=== PATIENT | male | born 1935 | race Caucasian/White ===

== ENCOUNTER 2016-09-06 09:18 | Day surgery (SDC) | payer MEDICARE, OTHER ==
[~2016-09-06] VITALS: Ht 182.9 cm; Wt 82.0 kg
[~2016-09-06 09:18] MED LIST: COLE625T2 PO; NIAC500T9 PO; VERA120T5 PO; VERA180T56 PO; VIT1TABL46 PO; vit D PO
[2016-09-06 09:56] VITALS: BP 146/65
[2016-09-06] MEDS ORDERED: SODIUM CHLORIDE 0.9% 1,000 ML IV SCH (10:15)
[2016-09-06] MEDS ORDERED: LEVO100T5 PO (10:19)
[2016-09-06 10:22] LABS: HEMOGLOBIN 12.3 g/dL (13.7-18.0)
[2016-09-06] MEDS ORDERED: LIDOCAINE 2%, 20ML ONE (10:23)
[2016-09-06 10:32] LABS: BLOOD UREA NITROGEN 21 mg/dL (7-18)
[2016-09-06] MEDS ORDERED: PROTAMINE SULFATE 10 MG/ML, 25ML ONE (10:40)
[2016-09-06] MEDS ORDERED: FENTANYL PF 100 MCG/2ML ONE (10:40)
[2016-09-06] MEDS ORDERED: FLUMAZENIL 0.1 MG/1 ML, 5ML ONE (10:40)
[2016-09-06] MEDS ORDERED: NITROGLYCERIN 5 MG/ML, 10ML ONE (10:40)
[2016-09-06] MEDS ORDERED: MIDAZOLAM 1 MG/ML, 5ML ONE (10:40)
[2016-09-06] MEDS ORDERED: NALOXONE 1 MG/ML, 2ML ONE (10:40)
[2016-09-06] MEDS ORDERED: HEPARIN 1,000 UNITS/ML, 10ML ONE (10:40)
== END 2016-09-06 14:00 | disposition home or self-care (01) ==
LOC: OUT 09:18
PROVIDERS: ATTEND Surgery Vascular Surgery
DX: T82.858A Stenosis of other vascular prosthetic devices, implants and grafts, initial encounter (principal); I13.11 Hypertensive heart and chronic kidney disease without heart failure, with stage 5 chronic kidney disease, or end stage renal disease; N18.6 End stage renal disease; Z99.2 Dependence on renal dialysis; E78.5 Hyperlipidemia, unspecified; Z87.891 Personal history of nicotine dependence; Z72.89 Other problems related to lifestyle; Y83.2 Surgical operation with anastomosis, bypass or graft as the cause of abnormal reaction of the patient, or of later complication, without mention of misadventure at the time of the procedure
CPT/HCPCS: 36415; 36902; 80048; 85025; C1725; C1769; C1894; J2250; J2720; J3010; J3490; J7030; 99156; 99157; J1644; J2310

== ENCOUNTER → 2017-07-27 | Outpatient (CLI) | payer MEDICARE, OTHER ==
[~2017-07-27] MED LIST changes: +COLE625T12 PO; -COLE625T2 PO; +LEVO100T5 PO
== END ==
LOC: CFH 12:53
PROVIDERS: ATTEND Internal Medicine Cardiovascular Disease
DX: I08.2 Rheumatic disorders of both aortic and tricuspid valves (principal); I10 Essential (primary) hypertension
CPT/HCPCS: 93306

== ENCOUNTER 2019-01-01 10:34 | Outpatient (CLI) | payer MEDICARE, OTHER | END 2019-01-01 23:59 | disposition home or self-care (01) | LOC: CFH 10:34 | PROVIDERS: ATTEND Internal Medicine Cardiovascular Disease | DX: I08.8 Other rheumatic multiple valve diseases (principal); E78.5 Hyperlipidemia, unspecified | CPT/HCPCS: 93306 ==

== ENCOUNTER 2019-01-22 10:03 | Day surgery (SDC) | payer MEDICARE, OTHER ==
[~2019-01-22] VITALS: Ht 185.4 cm; Wt 77.3 kg
[2019-01-22 11:21] VITALS: BP 154/74
== END 2019-01-22 14:55 | disposition home or self-care (01) ==
LOC: CACL 10:03
PROVIDERS: ATTEND Internal Medicine Cardiovascular Disease
DX: I25.10 Atherosclerotic heart disease of native coronary artery without angina pectoris (principal); I25.83 Coronary atherosclerosis due to lipid rich plaque; I35.0 Nonrheumatic aortic (valve) stenosis; I12.0 Hypertensive chronic kidney disease with stage 5 chronic kidney disease or end stage renal disease; N18.5 Chronic kidney disease, stage 5; E78.49 Other hyperlipidemia; Z99.2 Dependence on renal dialysis; Z79.890 Hormone replacement therapy; Z79.899 Other long term (current) drug therapy
CPT/HCPCS: 93458; 99156; C1769; C1894; J1644; J2250; J3010; Q9967; J0583

== ENCOUNTER → 2019-10-29 | Outpatient (CLI) | payer MEDICARE, OTHER ==
[~2019-10-29] MED LIST changes: +SEVE400T3 PO; +VERA120T13 PO; -VERA120T5 PO; -VERA180T56 PO; +VERA180T6 PO
== END | disposition home or self-care (01) ==
LOC: CFH 14:39
PROVIDERS: ATTEND Internal Medicine Cardiovascular Disease
DX: I08.2 Rheumatic disorders of both aortic and tricuspid valves (principal); I10 Essential (primary) hypertension
CPT/HCPCS: 93306

== ENCOUNTER → 2020-01-30 | Outpatient (CLI) | payer MEDICARE, OTHER | END | disposition home or self-care (01) | LOC: CVU 10:55 | PROVIDERS: ATTEND Internal Medicine Cardiovascular Disease | DX: I08.3 Combined rheumatic disorders of mitral, aortic and tricuspid valves (principal) | CPT/HCPCS: 93306; 93356 ==

== ENCOUNTER 2020-03-05 09:59 | Inpatient (IN) | payer MEDICARE, OTHER ==
[~2020-03-05] VITALS: Ht 185.4 cm; Wt 72.5 kg
[2020-03-05 11:15] VITALS: BP 169/79
[2020-03-05 11:20] LABS: BASOPHILS # (AUTO) 0.03 x10^3/uL (0-0.1); BASOPHILS % (AUTO) 1 % (0-1); EOSINOPHILS # (AUTO) 0.06 x10^3/uL (0-0.4); EOSINOPHILS % (AUTO) 1 % (1-7); LYMPHOCYTES # (AUTO) 0.87 x10^3/uL (1-3.4); LYMPHOCYTES % (AUTO) 14 % (22-44); MD NO; MEAN CORPUSCULAR HGB CONC 31.5 g/dL (33.2-36.2); MEAN PLATELET VOLUME 7.7 fL (7.4-10.4); MONOCYTES # (AUTO) 0.57 x10^3/uL (0.2-0.8); MONOCYTES % (AUTO) 9 % (2-9); NEUTROPHILS % (AUTO) 76 % (42-75); PLATELET COUNT 161 x10^3/uL (130-400); RED BLOOD COUNT 3.27 x10^6/uL (4.38-5.82); RED CELL DISTRIBUTION WIDTH 14.4 % (9.4-14.8)
[2020-03-05 11:30] LABS: ANION GAP 7 mmol/L (5-15); CHLORIDE 102 mmol/L (98-107); CREATININE 4.11 mg/dL (0.7-1.3)
[2020-03-05] MEDS ORDERED: TAMS-11 PO (11:30)
[2020-03-05] MEDS ORDERED: MIDAZOLAM 1 MG/ML, 5ML ONE (13:14)
[2020-03-05] MEDS ORDERED: FENTANYL PF 100 MCG/2ML ONE (13:14)
[2020-03-05] MEDS ORDERED: BIVALIRUDIN 250 MG ONE (13:15)
[2020-03-05] MEDS ORDERED: HEPARIN 1,000 UNITS/ML, 10ML ONE (13:15)
[2020-03-05] MEDS ORDERED: VERAPAMIL 2.5 MG/ML, 2ML ONE (13:15)
[2020-03-05] MEDS ORDERED: LIDOCAINE-MPF 1%, 5ML ONE (13:15)
[2020-03-05] MEDS ORDERED: LIDOCAINE 2%, 20ML ONE (13:29)
[2020-03-05] MEDS ORDERED: ACETAMINOPHEN 325 MG TABLET ONE (18:00)
[2020-03-05] MEDS: ACETAMINOPHEN 325 MG TABLET PO PRN (18:10)
[2020-03-05 19:26] VITALS: BP 136/62
[2020-03-06] MEDS: ACETAMINOPHEN 325 MG TABLET PO PRN (00:32)
[2020-03-06 01:04] VITALS: BP 154/72
[2020-03-06] MEDS ORDERED: OXYcodone IR 5MG TABLET PO PRN (01:30)
[2020-03-06 05:32] LABS: ANION GAP 13 mmol/L (5-15); CALCIUM 8.8 mg/dL (8.5-10.1); CHLORIDE 98 mmol/L (98-107); CREATININE 5.16 mg/dL (0.7-1.3)
[2020-03-06] MEDS: LEVOTHYROXINE 100 MCG TABLET PO SCH (05:47)
[2020-03-06 07:49] VITALS: BP 152/57
[2020-03-06] MEDS: VERAPAMIL 120MG TABLET PO SCH (09:01)
[2020-03-06] MEDS: COLESEVELAM 625 MG TABLET PO SCH (09:01)
[2020-03-06] MEDS: TAMSULOSIN 0.4 MG CAP.ER.24H PO SCH (09:01)
[2020-03-06 13:45] VITALS: BP 165/55
[2020-03-06] MEDS ORDERED: ONDANSETRON 2MG/ML, 2ML IVPush PRN (14:00)
[2020-03-06] MEDS ORDERED: ONDANSETRON 2MG/ML, 2ML ONE (14:32)
[2020-03-06 19:36] VITALS: BP 138/48
[2020-03-07 00:51] VITALS: BP 118/46
[2020-03-07] MEDS: LEVOTHYROXINE 100 MCG TABLET PO SCH (05:32)
[2020-03-07 06:02] LABS: BASOPHILS # (AUTO) 0.02 x10^3/uL (0-0.1); BASOPHILS % (AUTO) 0 % (0-1); EOSINOPHILS # (AUTO) 0.06 x10^3/uL (0-0.4); EOSINOPHILS % (AUTO) 1 % (1-7); LYMPHOCYTES # (AUTO) 1.24 x10^3/uL (1-3.4); LYMPHOCYTES % (AUTO) 19 % (22-44); MD NO; MEAN CORPUSCULAR HEMOGLOBIN 33.8 pg (27.5-34.5); MEAN CORPUSCULAR HGB CONC 32.9 g/dL (33.2-36.2); MEAN PLATELET VOLUME 8.4 fL (7.4-10.4); MONOCYTES # (AUTO) 0.74 x10^3/uL (0.2-0.8); MONOCYTES % (AUTO) 11 % (2-9); NEUTROPHILS # (AUTO) 4.39 x10^3/uL (1.8-6.8); NEUTROPHILS % (AUTO) 68 % (42-75); PLATELET COUNT 122 x10^3/uL (130-400); RED CELL DISTRIBUTION WIDTH 14.3 % (9.4-14.8)
[2020-03-07 07:45] VITALS: BP 113/42
[2020-03-07] MEDS: VERAPAMIL 120MG TABLET PO SCH (09:00)
[2020-03-07 09:42] VITALS: BP 105/39
[2020-03-07] MEDS: TAMSULOSIN 0.4 MG CAP.ER.24H PO SCH (09:54)
[2020-03-07] MEDS: COLESEVELAM 625 MG TABLET PO SCH (09:57)
[2020-03-07 12:48] VITALS: BP 147/48
[2020-03-07 19:49] VITALS: BP 109/43
[2020-03-08 00:05] VITALS: BP 134/55
[2020-03-08] MEDS: LEVOTHYROXINE 100 MCG TABLET PO SCH (05:07)
[2020-03-08 06:10] VITALS: BP 133/53
[2020-03-08 07:30] VITALS: BP 122/52
[2020-03-08 07:56] LABS: MEAN CORPUSCULAR HGB CONC 32.7 g/dL (33.2-36.2); MEAN PLATELET VOLUME 7.9 fL (7.4-10.4); PLATELET COUNT 133 x10^3/uL (130-400); RED BLOOD COUNT 2.16 x10^6/uL (4.38-5.82); RED CELL DISTRIBUTION WIDTH 14.1 % (9.4-14.8)
[2020-03-08 08:12] LABS: BASOPHILS # (AUTO) 0.02 x10^3/uL (0-0.1); BASOPHILS % (AUTO) 0 % (0-1); EOSINOPHILS % (AUTO) 2 % (1-7); LYMPHOCYTES # (AUTO) 1.05 x10^3/uL (1-3.4); LYMPHOCYTES % (AUTO) 18 % (22-44); MD SCAN; MONOCYTES # (AUTO) 0.63 x10^3/uL (0.2-0.8); MONOCYTES % (AUTO) 11 % (2-9); NEUTROPHILS # (AUTO) 4.11 x10^3/uL (1.8-6.8); NEUTROPHILS % (AUTO) 70 % (42-75)
[2020-03-08] MEDS: VERAPAMIL 120MG TABLET PO SCH (09:00)
[2020-03-08 10:22] VITALS: BP_SYST 118; BP_SYST 84; BP_SYST 96; BP_DIAS 33; BP_DIAS 45; BP_DIAS 52
[2020-03-08] MEDS: TAMSULOSIN 0.4 MG CAP.ER.24H PO SCH (11:28)
[2020-03-08] MEDS: COLESEVELAM 625 MG TABLET PO SCH (11:28)
[2020-03-08 14:11] VITALS: BP 144/55
[2020-03-08 19:03] VITALS: BP 136/63
[2020-03-09] VITALS (10 sets, daily range): BP systolic 119–152; BP diastolic 54–64
[2020-03-09] MEDS: LEVOTHYROXINE 100 MCG TABLET PO SCH (06:20)
[2020-03-09] MEDS: VERAPAMIL 120MG TABLET PO SCH (08:44)
[2020-03-09] MEDS: COLESEVELAM 625 MG TABLET PO SCH (08:52)
[2020-03-09] MEDS: TAMSULOSIN 0.4 MG CAP.ER.24H PO SCH (08:53)
[2020-03-10 00:28] VITALS: BP 133/57
[2020-03-10] MEDS: LEVOTHYROXINE 100 MCG TABLET PO SCH (05:24)
[2020-03-10 06:55] VITALS: BP 157/66
[2020-03-10] MEDS: TAMSULOSIN 0.4 MG CAP.ER.24H PO SCH (09:43)
[2020-03-10] MEDS: VERAPAMIL 120MG TABLET PO SCH (09:44)
[2020-03-10] MEDS: COLESEVELAM 625 MG TABLET PO SCH (09:44)
[2020-03-10 12:08] VITALS: BP 119/57
== END 2020-03-10 15:45 | disposition home or self-care (01) | DRG 919 ==
LOC: CACL 09:59 → ORIP 14:08 → 5SO 14:57 → DCLOUNGE 03-10 15:38
PROVIDERS: ADMIT Internal Medicine Cardiovascular Disease; ATTEND Internal Medicine Cardiovascular Disease
PROC: B2111ZZ Fluoroscopy of Multiple Coronary Arteries using Low Osmolar Contrast (ICD-10-PCS; 2020-03-05)
PROC: 4A023N7 Measurement of Cardiac Sampling and Pressure, Left Heart, Percutaneous Approach (ICD-10-PCS; 2020-03-05)
PROC: 5A1D70Z Performance of Urinary Filtration, Intermittent, Less than 6 Hours Per Day (ICD-10-PCS; 2020-03-06)
PROC: 30233N1 Transfusion of Nonautologous Red Blood Cells into Peripheral Vein, Percutaneous Approach (ICD-10-PCS; principal; 2020-03-09)
DX: I97.610 Postprocedural hemorrhage of a circulatory system organ or structure following a cardiac catheterization (principal); N18.6 End stage renal disease; D62 Acute posthemorrhagic anemia; I12.0 Hypertensive chronic kidney disease with stage 5 chronic kidney disease or end stage renal disease; I35.0 Nonrheumatic aortic (valve) stenosis; S30.1XXA Contusion of abdominal wall, initial encounter; D69.6 Thrombocytopenia, unspecified; E78.5 Hyperlipidemia, unspecified; H54.7 Unspecified visual loss; I25.10 Atherosclerotic heart disease of native coronary artery without angina pectoris; Z87.891 Personal history of nicotine dependence; Z99.2 Dependence on renal dialysis; R33.8 Other retention of urine; E03.9 Hypothyroidism, unspecified; Z83.6 Family history of other diseases of the respiratory system; Z82.3 Family history of stroke; Y83.8 Other surgical procedures as the cause of abnormal reaction of the patient, or of later complication, without mention of misadventure at the time of the procedure; Y92.238 Other place in hospital as the place of occurrence of the external cause
CPT/HCPCS: 36415; 74176; 80048; 85014; 85018; 85025; 86704; 86705; 86706; 86850; 86900; 86923; 87340; 90935; 93454; 93926; 99156; C1769; C1894; G0378; J0583; J1644; J2250; J2405; J3010; P9016

== ENCOUNTER 2020-03-12 09:51 | Outpatient (CLI) | payer MEDICARE, OTHER ==
[~2020-03-12 09:51] MED LIST changes: +TAMS-11 PO
[2020-03-12] MEDS ORDERED: VISIPAQUE 320 MG/ML, 150ML BOTTLE ONE (12:07)
== END 2020-03-12 23:59 | disposition home or self-care (01) ==
LOC: CVU 09:51 → RAD 23:59
PROVIDERS: ATTEND Internal Medicine Cardiovascular Disease
DX: Z01.810 Encounter for preprocedural cardiovascular examination (principal); S30.0XXA Contusion of lower back and pelvis, initial encounter; I25.10 Atherosclerotic heart disease of native coronary artery without angina pectoris; I65.23 Occlusion and stenosis of bilateral carotid arteries; I35.0 Nonrheumatic aortic (valve) stenosis; N26.1 Atrophy of kidney (terminal); I70.1 Atherosclerosis of renal artery; J90 Pleural effusion, not elsewhere classified; R94.2 Abnormal results of pulmonary function studies; X58.XXXA Exposure to other specified factors, initial encounter; Y93.89 Activity, other specified; Y92.89 Other specified places as the place of occurrence of the external cause; Y99.8 Other external cause status
CPT/HCPCS: 71275; 74174; 93880; 94060; 94729; Q9967; 36415; 86900

== ENCOUNTER → 2020-04-30 | Outpatient (CLI) | payer MEDICARE, OTHER ==
[~2020-04-30] MED LIST changes: +ASPI81TA45 PO
== END | disposition home or self-care (01) ==
LOC: CFH 08:29
PROVIDERS: ATTEND Internal Medicine Cardiovascular Disease
DX: I51.7 Cardiomegaly (principal); R06.02 Shortness of breath; I65.29 Occlusion and stenosis of unspecified carotid artery; E78.5 Hyperlipidemia, unspecified; Z95.2 Presence of prosthetic heart valve
CPT/HCPCS: 93306

== ENCOUNTER → 2021-03-09 | Outpatient (CLI) | payer MEDICARE, OTHER ==
[~2021-03-09] MED LIST changes: -VERA180T6 PO; +[UNRECOGNIZED DRUG - CODE] PO
== END | disposition home or self-care (01) ==
LOC: CFH 13:29
PROVIDERS: ATTEND Internal Medicine Cardiovascular Disease
DX: I08.8 Other rheumatic multiple valve diseases (principal); I10 Essential (primary) hypertension; E78.5 Hyperlipidemia, unspecified
CPT/HCPCS: 93306